=== PATIENT | female | born 1985 | race African-American/Black ===

== ENCOUNTER 2016-05-07 20:04 | Emergency (ER) | payer MEDICAID ==
[~2016-05-07] VITALS: Ht 165.1 cm; Wt 108.9 kg
[2016-05-07 20:34] VITALS: BP 150/72
[2016-05-07 21:09] LABS: Urine Bilirubin Negative (Negative); Urine Blood TRACE /uL (Negative); Urine Color Yellow (Yellow); Urine Glucose Normal (Normal); Urine Ketone Negative (Negative); Urine Nitrite Negative (Negative); Urine RBC 1 /hpf (0 - 4)
[2016-05-07 21:17] LABS: Basophils # (auto) 0.1 uL; Basophils % (auto) 0.6 % (0.0-2.0); Eosinophils # (auto) 0.1 uL; Hematocrit 39.2 % (36.0-46.0); Hemoglobin 13.3 g/dL (12.2-16.2); Lymphocytes # (auto) 2.9 uL; Lymphocytes % (auto) 32.2 % (10.0-50.0); Mean Corpuscular Hemoglobin 31.8 pg (28.0-32.0); Mean Corpuscular Volume 93.6 fL (80.0-100.0); Mean Platelet Volume 9.7 fL (7.4-10.4); Monocytes # (auto) 0.4 uL; Monocytes % (auto) 4.8 % (0.0-12.0); Neutrophils # (auto) 5.6 uL; Neutrophils % (auto) 61.4 % (37.0-80.0); Platelet Count (auto) 255 10^3/uL (140-450); White Blood Cell 9.1 10^3/uL (4.4-10.8)
[2016-05-07 21:28] LABS: Albumin 3.7 g/dL (3.4-5.0); BUN/Creatinine Ratio 15.2; Calcium 8.2 mg/dL (8.5-10.1); Potassium 3.7 mmol/L (3.5-5.1)
[2016-05-07 21:31] LABS: Bilirubin, Total 0.2 mg/dL (0.2-1.0); Total Protein 7.5 g/dL (6.4-8.2)
== END 2016-05-08 02:29 | disposition left against medical advice (07) ==
LOC: ER 20:04
DX: R10.30 Lower abdominal pain, unspecified (principal); Z53.21 Procedure and treatment not carried out due to patient leaving prior to being seen by health care provider
CPT/HCPCS: 36415; 80053; 81001; 81025; 85025